=== PATIENT | female | born 1995 | race Caucasian/White ===

== ENCOUNTER 2018-11-11 19:41 | Emergency (ER) | payer BC ==
[~2018-11-11] VITALS: Ht 149.9 cm; Wt 44.5 kg
[~2018-11-11 19:41] MED LIST: BACTRIM DS TAB1 EACH PO; PHENAZOPYRIDIN200 M2 PO
[2018-11-11] MEDS ORDERED: IBUPROFEN 600600 M1 PO (21:06)
[2018-11-11 21:40] VITALS: BP 120/72
== END 2018-11-11 21:40 | disposition home or self-care (01) ==
LOC: M.ERS 19:41
DX: S80.12XA Contusion of left lower leg, initial encounter (principal); W20.8XXA Other cause of strike by thrown, projected or falling object, initial encounter; Y92.89 Other specified places as the place of occurrence of the external cause; Y93.89 Activity, other specified; Y99.8 Other external cause status